=== PATIENT | female | born 1945 | race African-American/Black ===

== ENCOUNTER 2024-07-16 23:02 | Inpatient (IN) | payer MEDICARE ==
[~2024-07-16] VITALS: Ht 167.6 cm; Wt 86.4 kg
[2024-07-16 22:00] VITALS: BP 158/63; TEMP 98.8; O2SAT 95
[2024-07-17] MEDS ORDERED: MAGNESIUM HYDROXIDE 30 ML LIQUID UDC PO PRN
[2024-07-17] MEDS ORDERED: ONDANSETRON 4 MG/2 ML VIAL IV PRN
[2024-07-17] MEDS ORDERED: REMEDY ESSENTIAL ZINC PASTE 113 GM TP PRN
[2024-07-17] MEDS ORDERED: ACETAMINOPHEN 325 MG TABLET PO PRN
[2024-07-17] MEDS ORDERED: ZOLPIDEM 5 MG TABLET PO PRN
[2024-07-17 00:15] VITALS: BP 135/69; TEMP 98.7; O2SAT 93
[2024-07-17 06:42] VITALS: TEMP 98.5; O2SAT 97
[2024-07-17 07:28] LABS: BASOPHILS % (AUTO) 0.7 % (0.0-2.0); EOSINOPHILS # (AUTO) 0.1 K/uL (0.0-0.7); EOSINOPHILS % (AUTO) 1.2 % (0.0-7.0); HEMATOCRIT 28.2 % (31.2-41.9); HEMOGLOBIN 9.7 g/dL (10.9-14.3); LYMPHOCYTES # (AUTO) 2.1 K/uL (0.8-4.8); LYMPHOCYTES % (AUTO) 36.8 % (20.5-51.5); MEAN CORPUSCULAR HEMOGLOBIN 30.7 uug (24.7-32.8); MEAN CORPUSCULAR HGB CONC 34 g/dL (32.3-35.6); MEAN CORPUSCULAR VOLUME 89.5 fL (75.5-95.3); MONOCYTES # (AUTO) 0.6 K/uL (0.1-1.30); MONOCYTES % (AUTO) 10.5 % (0.0-11.0); NEUTROPHILS # (AUTO) 2.8 K/uL (1.8-8.9); NEUTROPHILS % (AUTO) 50.8 % (38.5-71.5); PLATELET COUNT (AUTO) 276 K/uL (179-408); RED BLOOD CELL COUNT(AUTO) 3.15 MIL/uL (3.63-4.92); RED CELL DISTRIBUTION WIDTH 15.4 % (12.3-17.7); WHITE BLOOD COUNT (AUTO) 5.6 K/uL (3.8-11.8)
[2024-07-17 07:41] VITALS: BP 153/72; TEMP 98.2; O2SAT 96
[2024-07-17 07:53] LABS: CALCIUM 8.7 mg/dL (8.5-10.1); CARBON DIOXIDE 26 mmol/L (21-32); CHLORIDE 108 mmol/L (98-107); CHOLESTEROL 89 mg/dL (<200); CREATININE 1.1 mg/dL (0.6-1.3); GLUCOSE 127 mg/dL (74-106); HDL CHOLESTEROL 43 mg/dL (40-60); MAGNESIUM 1.4 mg/dL (1.8-2.4); PHOSPHOROUS 3.9 mg/dL (2.5-4.9); POTASSIUM 3.9 mmol/L (3.5-5.1); SODIUM SERUM 142 mmol/L (136-145); TRIGLYCERIDES 37 MG/DL (30-150); UREA NITROGEN, BLOOD 16 mg/dL (7-18)
[2024-07-17 08:31] LABS: DIFFERENTIAL COMMENT 1
[2024-07-17] MEDS ORDERED: CEFTRIAXONE 1 G in IV DEXTROSE 5% 50 ML IV SCH ×2 (09:00)
[2024-07-17 09:39] LABS: THYROID STIMULATING HORMONE 1.665 mIU/mL (0.358-3.740)
[2024-07-17] MEDS: MAGNESIUM SULFATE/D5W 100 ML IV SCH (10:47)
[2024-07-17] MEDS: PANTOPRAZOLE SODIUM 40 MG VIAL IV SCH (10:49)
[2024-07-17] MEDS: ENOXAPARIN SODIUM 40 MG/0.4 ML DISP.SYRIN SQ SCH (10:49)
[2024-07-17 11:41] VITALS: BP 134/80; TEMP 98.1; O2SAT 97
[2024-07-17] MEDS ORDERED: LISI20TA30 PO (15:09)
[2024-07-17] MEDS ORDERED: FURO20TA4 PO (15:10)
[2024-07-17] MEDS ORDERED: FLUC100T PO (15:10)
[2024-07-17] MEDS ORDERED: CLOP75TA33 PO (15:12)
[2024-07-17] MEDS ORDERED: METF-440 PO (15:14)
[2024-07-17] MEDS ORDERED: ATOR80TA PO (15:15)
[2024-07-17] MEDS ORDERED: ASPI81TA31 PO (15:16)
[2024-07-17] MEDS ORDERED: FAMO40TA7 PO (15:16)
[2024-07-17] MEDS ORDERED: BISA-79 PO (15:17)
[2024-07-17] MEDS ORDERED: SENN-18 PO (15:17)
[2024-07-17] MEDS: CEFTRIAXONE 1 G in IV DEXTROSE 5% 50 ML IV SCH (15:22)
[2024-07-17 15:33] VITALS: BP 143/82; TEMP 98.5; O2SAT 96
[2024-07-17 20:34] VITALS: BP 175/82; TEMP 98; O2SAT 98
[2024-07-17] MEDS: hydrALAZINE HCL 25 MG TABLET PO PRN (22:54)
[2024-07-18 06:20] VITALS: BP 159/77; TEMP 97.9; O2SAT 97
[2024-07-18 06:58] LABS: BASOPHILS # (AUTO) 0.1 K/UL (0.0-0.2); BASOPHILS % (AUTO) 0.8 % (0.0-2.0); EOSINOPHILS # (AUTO) 0.2 K/uL (0.0-0.7); EOSINOPHILS % (AUTO) 2.7 % (0.0-7.0); HEMATOCRIT 31.3 % (31.2-41.9); HEMOGLOBIN 10.4 g/dL (10.9-14.3); LYMPHOCYTES # (AUTO) 1.3 K/uL (0.8-4.8); MEAN CORPUSCULAR HEMOGLOBIN 30.2 uug (24.7-32.8); MEAN CORPUSCULAR HGB CONC 33 g/dL (32.3-35.6); MEAN CORPUSCULAR VOLUME 90.4 fL (75.5-95.3); MONOCYTES # (AUTO) 0.7 K/uL (0.1-1.30); MONOCYTES % (AUTO) 12.3 % (0.0-11.0); NEUTROPHILS # (AUTO) 3.8 K/uL (1.8-8.9); NEUTROPHILS % (AUTO) 63.2 % (38.5-71.5); PLATELET COUNT (AUTO) 287 K/uL (179-408); RED BLOOD CELL COUNT(AUTO) 3.46 MIL/uL (3.63-4.92); RED CELL DISTRIBUTION WIDTH 15.9 % (12.3-17.7)
[2024-07-18 07:17] LABS: DIFFERENTIAL COMMENT 1
[2024-07-18 07:25] LABS: ALANINE AMINOTRANSFERASE 27 U/L (14-59); ALBUMIN 3.1 g/dL (3.4-5.0); ALKALINE PHOSPHATASE 83 U/L (50-136); ASPARTATE AMINOTRANSFERASE 21 U/L (15-37); BILIRUBIN,DIRECT 0.2 mg/dL (0.0-0.2); BILIRUBIN,TOTAL 0.5 mg/dL (0.2-1.0); CALCIUM 8.8 mg/dL (8.5-10.1); CARBON DIOXIDE 26 mmol/L (21-32); CHLORIDE 107 mmol/L (98-107); GLUCOSE 174 mg/dL (74-106); POTASSIUM 4.6 mmol/L (3.5-5.1); SODIUM SERUM 143 mmol/L (136-145); TOTAL PROTEIN, SERUM 6.6 g/dL (6.4-8.2); UREA NITROGEN, BLOOD 14 mg/dL (7-18)
[2024-07-18 07:39] LABS: MAGNESIUM 2.1 mg/dL (1.8-2.4); PHOSPHOROUS 3.5 mg/dL (2.5-4.9)
[2024-07-18] MEDS ORDERED: FUROSEMIDE 20 MG TABLET PO SCH (09:00)
[2024-07-18] MEDS ORDERED: ASPIRIN EC 81 MG TABLET.DR PO SCH (09:00)
[2024-07-18] MEDS ORDERED: METFORMIN HCL 500 MG TABLET PO SCH (09:00)
[2024-07-18] MEDS ORDERED: SENNOSIDES 1 TABLET PO PRN (09:00)
[2024-07-18] MEDS: ASPIRIN EC 81 MG TABLET.DR PO SCH (10:50)
[2024-07-18] MEDS: FUROSEMIDE 20 MG TABLET PO SCH (10:51)
[2024-07-18] MEDS: LISINOPRIL 20 MG TABLET PO SCH (10:51)
[2024-07-18] MEDS: CLOPIDOGREL 75 MG TABLET PO SCH (10:51)
[2024-07-18] MEDS: METFORMIN HCL 500 MG TABLET PO SCH (10:51)
[2024-07-18 11:14] VITALS: BP 156/78; TEMP 98.2; O2SAT 94
[2024-07-18 15:39] VITALS: BP 147/65; TEMP 97.6; O2SAT 95
[2024-07-18 20:00] VITALS: BP 147/60; TEMP 98.4; O2SAT 98
[2024-07-18 21:15] LABS: IRON, SERUM 61 ug/dL (50-175)
[2024-07-19 04:00] VITALS: TEMP 97.6
[2024-07-19] MEDS: PANTOPRAZOLE SODIUM 40 MG TABLET.DR PO SCH (06:22)
[2024-07-19 06:55] VITALS: BP 152/81; TEMP 97.6; O2SAT 99
[2024-07-19 11:29] VITALS: BP 123/60; TEMP 97.5; O2SAT 98
[2024-07-19 12:59] VITALS: TEMP 98.4
[2024-07-19 20:00] VITALS: BP 140/73; TEMP 98.5; O2SAT 96
[2024-07-19 20:36] VITALS: BP 140/73; TEMP 98.5; O2SAT 96
[2024-07-20 06:08] VITALS: BP 167/76; TEMP 98.3; O2SAT 97
[2024-07-20] MEDS: METOPROLOL TARTRATE 25 MG TABLET PO SCH (09:31)
[2024-07-20 12:59] VITALS: TEMP 98.4
[2024-07-20] MEDS ORDERED: HYDR-894 PO (13:38)
[2024-07-20] MEDS ORDERED: METF-440 PO (13:38)
[2024-07-20] MEDS ORDERED: ACID1TAB4 PO (13:38)
[2024-07-20] MEDS ORDERED: FERR324T17 PO (13:38)
[2024-07-20] MEDS ORDERED: CEFT1VIA15 IV (13:38)
[2024-07-20] MEDS ORDERED: MAGN400O6 PO (13:38)
[2024-07-20] MEDS ORDERED: ZOLP5TAB2 PO (13:38)
[2024-07-20] MEDS ORDERED: ASPI-618 PO (13:38)
[2024-07-20] MEDS ORDERED: METO25TA6 PO (13:38)
[2024-07-20] MEDS ORDERED: ATOR20TA PO (13:38)
[2024-07-20 15:28] VITALS: BP 155/80; TEMP 98.6; O2SAT 95
== END 2024-07-20 18:15 | DRG 689 ==
LOC: TELE3 23:02 → MEDSURG3 07-17 10:18 → UNDODISIN 07-20 15:45
PROVIDERS: ADMIT Student in an Organized Health Care Education/Training Program; ATTEND Internal Medicine
DX: N39.0 Urinary tract infection, site not specified (principal); I21.A1 Myocardial infarction type 2; D68.59 Other primary thrombophilia; E11.9 Type 2 diabetes mellitus without complications; Z79.84 Long term (current) use of oral hypoglycemic drugs; D64.9 Anemia, unspecified; E66.9 Obesity, unspecified; Z68.31 Body mass index [BMI] 31.0-31.9, adult; Z74.09 Other reduced mobility; E83.42 Hypomagnesemia; F03.90 Unspecified dementia, unspecified severity, without behavioral disturbance, psychotic disturbance, mood disturbance, and anxiety; I10 Essential (primary) hypertension; Z96.651 Presence of right artificial knee joint; Z87.39 Personal history of other diseases of the musculoskeletal system and connective tissue; Z88.0 Allergy status to penicillin
CPT/HCPCS: 36415; 71045; 83550; 83605; 83735; 84100; 84443; 84484; 85025; 93307; A4663; G0378; J0696; J1650; J2470; J3475